=== PATIENT | male | born 1950 | race Caucasian/White ===

== ENCOUNTER 2018-08-30 02:59 | Emergency (ER) | payer MEDICARE, OTHER ==
--- NOTE | 2018-08-30 04:13 | EDM.PDOC ---
ED HPI GENERAL MEDICAL PROBLEM - General Chief Complaint: Cardiovascular Problem Stated Complaint: HEART Time Seen by Provider: 08/30/18 03:20 Source of Information: Reports: Patient, Family History Limitations: Reports: No Limitations - History of Present Illness INITIAL COMMENTS - FREE TEXT/NARRATIVE: 68-year-old male, has been having paroxysmal atrial fibrillation for the past 5 months. He is on a chemotherapy agent for CLL, which has a side effect of increased arrhythmias. He had atrial fibrillation for 3 straight days from August 24 to August 26, followed up with his oncologist and his medication was stopped. He was in a normal sinus rhythm when he saw his oncologist, and was told that if he gets another episode of atrial fibrillation or palpitations he needs to come directly in to get it documented. He was in normal rhythm until 1 AM, 2 hours before coming into the emergency room when he awoke with palpitations. He has no shortness of breath, chest pain, fever or chills. No peripheral edema. Onset: Sudden Duration: Hour(s): Associated Symptoms: Reports: Shortness of Breath (Short of breath with activity ) - Related Data Allergies Allergy/AdvReac Type Severity Reaction Status Date / Time No Known Allergies Allergy Verified 08/30/18 03:06 Home Meds: Home Meds NK [No Known Home Meds] 08/30/18 [History] Past Medical History HEENT History: Reports: Cataract, Impaired Vision Other Cardiovascular History: CLL Other Oncologic History: LLC - Past Surgical History Musculoskeletal Surgical History: Reports: Arthroscopic Procedure, Knee Replacement Other Musculoskeletal Surgeries/Procedures:: arthroscopic ankle surgery Social & Family History - Tobacco Use Smoking Status *Q: Never Smoker - Caffeine Use Caffeine Use: Reports: Soda Caffeine Use Comment: occasional diet soda - Recreational Drug Use Recreational Drug Use: No ED ROS GENERAL - Review of Systems Review Of Systems: See Below Constitutional: Denies: Fever, Chills Respiratory: Reports: Shortness of Breath (Only with activity) Cardiovascular: Reports: Palpitations GI/Abdominal: Reports: No Symptoms Musculoskeletal: Reports: No Symptoms Skin: Reports: No Symptoms Neurological: Reports: No Symptoms Hematologic/Lymphatic: Reports: Other (Apparently he is becoming somewhat anemic attributed to his CLL) ED EXAM, GENERAL - Physical Exam Exam: See Below Exam Limited By: No Limitations General Appearance: Alert, No Apparent Distress Eye Exam: Bilateral Eye: Normal Inspection Head: Atraumatic Respiratory/Chest: No Respiratory Distress, Lungs Clear Cardiovascular: Irregularly Irregular. No: Tachycardia Extremities: No: Pedal Edema Neurological: Alert, Oriented Psychiatric: Normal Affect, Normal Mood Skin Exam: Warm, Dry EKG INTERPRETATION EKG Date: 08/30/18 Rhythm: A-Fib Rate (Beats/Min): 78 QRS: Normal Comparison: NA - No Prior EKG Course - Vital Signs Last Recorded V/S: Last Vital Signs Temp 99.7 F 08/30/18 03:04 Pulse 67 08/30/18 04:03 Resp 16 08/30/18 03:04 BP 121/75 08/30/18 04:03 Pulse Ox 97 08/30/18 03:04 - Orders/Labs/Meds Orders: Active Orders 24 hr Category Date Time Status EKG Documentation Completion [RC] ASDIRECTED Care 08/30/18 04:11 Active EKG 12 Lead [EK] Routine Ther 08/30/18 04:11 Ordered Labs: Laboratory Tests 08/30/18 08/30/18 Range/Units 04:36 04:36 WBC 57.2 H* (4.5-11.0) K/uL RBC 3.61 L (4.30-5.90) M/uL Hgb 10.4 L (12.0-15.0) g/dL Hct 33.9 L (40.0-54.0) % MCV 94 (80-98) fL MCH 29 (27-31) pg MCHC 31 L (32-36) % Plt Count 160 (150-400) K/uL Neut % (Auto) 4 L (36-66) % Lymph % (Auto) 95 H (24-44) % [place] % (Auto) 1 L (2-6) % Eos % (Auto) 0 L (2-4) % Baso % (Auto) 0 (0-1) % Sodium 144 (140-148) mmol/L Potassium 3.9 (3.6-5.2) mmol/L Chloride 109 H (100-108) mmol/L Carbon Dioxide 26 (21-32) mmol/L Anion Gap 12.9 (5.0-14.0) mmol/L BUN 16 (7-18) mg/dL Creatinine 0.9 (0.8-1.3) mg/dL Est Cr Clr Drug Dosing 93.87 mL/min Estimated GFR (MDRD) > 60 (>60) Glucose 92 (74-106) mg/dL Calcium 8.9 (8.5-10.1) mg/dL Total Bilirubin 0.4 (0.2-1.0) mg/dL AST 20 (15-37) U/L ALT 27 (12-78) U/L Alkaline Phosphatase 37 L (46-116) U/L Troponin I < 0.017 (0.000-0.056) ng/mL Total Protein 6.2 L (6.4-8.2) g/dL Albumin 3.7 (3.4-5.0) g/dL Globulin 2.5 (2.3-3.5) g/dL Albumin/Globulin Ratio 1.5 (1.2-2.2) TSH, Ultra Sensitive 8.040 H (0.358-3.740) uIU/mL - Re-Assessments/Exams Free Text/Narrative Re-Assessment/Exam: 08/30/18 04:19 EKG confirmed atrial fibrillation. Sat and discussed options with the patient for 30 minutes and he continued to be in a well-controlled atrial fibrillation pattern. A CBC, CMP, TSH and troponin were obtained, and the patient will return at 8-9 AM in a fasting state to discuss an elective cardioversion in medication options. Departure - Departure Time of Disposition: 04:13 Disposition: Home, Self-Care 01 Clinical Impression: Atrial fibrillation Qualifiers: Atrial fibrillation type: paroxysmal Qualified Code(s): I48.0 - Paroxysmal atrial fibrillation Instructions: Atrial Fibrillation, [id number] Referrals: PCP,None [Primary Care Provider] - Forms: ED Department Discharge Care Plan Goals: Return tomorrow morning around 8-9 AM if still experiencing an irregular heartbeat. - My Orders Last 24 Hours: My Active Orders 08/30/18 04:11 EKG Documentation Completion [RC] ASDIRECTED EKG 12 Lead [EK] Routine - Assessment/Plan Last 24 Hours: My Active Orders 08/30/18 04:11 EKG Documentation Completion [RC] ASDIRECTED EKG 12 Lead [EK] Routine
== END 2018-08-30 04:36 | disposition home or self-care (01) ==
LOC: JP.ED 02:59
DX: I48.0 Paroxysmal atrial fibrillation (principal)
CPT/HCPCS: 36415; 80053; 84443; 84484; 85025; 92950; 93005; 93010; 99283; 99284-25; J2704; J3490; J7030

== ENCOUNTER 2018-08-30 11:02 | Emergency (ER) | payer MEDICARE, OTHER ==
[2018-08-30] MEDS ORDERED: Diltiazem 25 MG/5 ML SDV IVPUSH ONE (11:51)
--- NOTE | 2018-08-30 11:53 | EDM.PDOC ---
ED HPI GENERAL MEDICAL PROBLEM - General Chief Complaint: Cardiovascular Problem Stated Complaint: AFIB Time Seen by Provider: 08/30/18 11:17 Source of Information: Reports: Patient, Family, Old Records, RN Notes Reviewed History Limitations: Reports: No Limitations - History of Present Illness INITIAL COMMENTS - FREE TEXT/NARRATIVE: 68-year-old gentleman presents emergency department today complaint of palpitations, he was in the emergency department earlier today evaluation shows atrial fibrillation he does have a known history of paroxysmal atrial fibrillation for the last 10 years he is specific that this happened to him early this morning his symptoms are he goes up the stairs he gets short of breath and has to rest lab work was unrevealing except for mildly elevated TSH EKG is consistent with atrial fibrillation - Related Data Allergies Allergy/AdvReac Type Severity Reaction Status Date / Time No Known Allergies Allergy Verified 08/30/18 03:06 Home Meds: Home Meds NK [No Known Home Meds] 08/30/18 [History] Past Medical History HEENT History: Reports: Cataract, Impaired Vision Cardiovascular History: Reports: Afib Other Cardiovascular History: CLL Other Oncologic History: LLC - Past Surgical History Musculoskeletal Surgical History: Reports: Arthroscopic Procedure, Knee Replacement Other Musculoskeletal Surgeries/Procedures:: arthroscopic ankle surgery Social & Family History - Tobacco Use Smoking Status *Q: Never Smoker - Caffeine Use Caffeine Use: Reports: Energy Drinks, Soda Caffeine Use Comment: occasional diet soda - Recreational Drug Use Recreational Drug Use: No ED ROS GENERAL - Review of Systems Review Of Systems: See Below Constitutional: Reports: No Symptoms HEENT: Reports: No Symptoms Respiratory: Reports: No Symptoms Cardiovascular: Reports: Dyspnea on Exertion, Palpitations. Denies: Chest Pain GI/Abdominal: Reports: No Symptoms ED EXAM, GENERAL - Physical Exam Exam: See Below Exam Limited By: No Limitations General Appearance: Alert, WD/WN, No Apparent Distress Respiratory/Chest: No Respiratory Distress, Lungs Clear, Normal Breath Sounds, No Accessory Muscle Use, Chest Non-Tender Cardiovascular: Regular Rate, Rhythm, No Murmur ED CARDIOLOGY PROCEDURES - Additional/Other Procedure(s) Other (Free Text) Procedure(s): Preprocedure diagnosis: Paroxysmal atrial fibrillation Postprocedure diagnosis: Sinus rhythm Indication for procedure: Dyspnea and palpitations Performing physician: OfficerMD Procedure: Patient is located emergency department. Review risks and benefits of electrical cardioversion including but not limited to: Superficial skin eagle , effective treatment, unknown arrhythmias, reaction to anesthesia medications or asystole. The risks and benefits to this procedure have been discussed. Patient wishes to proceed with electrical cardioversion. The patient was connected to cardioversion pads with EKG monitoring, oxygen via nasal cannula with equipment of intubation and suction in the room. Paperwork was completed prior to the procedure with timeout performed by nursing staff. After adequate anesthesia was achieved the machine was charged to 200 joules and a synchronized electrical shock was applied. Patient was successfully converted to normal sinus rhythm based on telemetry monitoring. Patient will remain in the emergency department for post anesthesia care until awake and alert. Plan is to discharge home. Anticoagulation of aspirin, his chads score is 1 secondary to age Complications: None apparent Postprocedural EKG: Normal sinus rhythm Course - Vital Signs Last Recorded V/S: Last Vital Signs Temp 97.6 F 08/30/18 11:23 Pulse 49 L 08/30/18 12:13 Resp 8 L 08/30/18 12:13 BP 113/73 08/30/18 12:13 Pulse Ox 98 08/30/18 12:13 - Orders/Labs/Meds Orders: Active Orders 24 hr Category Date Time Status Sodium Chloride 0.9% [Normal Saline] 1,000 ml Med 08/30/18 13:00 Active IV ASDIRECTED Medication Orders Sodium Chloride (Normal Saline) 1,000 mls @ 100 mls/hr IV ASDIRECTED SWETHA Last Admin: 08/30/18 13:05 Dose: 100 mls/hr Meds: Medications Generic Name Dose Route Start Last Admin Trade Name Freq PRN Reason Stop Dose Admin Sodium Chloride 1,000 mls @ 100 mls/hr 08/30/18 13:00 08/30/18 13:05 Normal Saline IV 100 mls/hr ASDIRECTED SWETHA Administration Discontinued Medications Generic Name Dose Route Start Last Admin Trade Name Freq PRN Reason Stop Dose Admin Diltiazem HCl 25 mg 08/30/18 11:51 08/30/18 11:57 Diltiazem IVPUSH 08/30/18 11:52 25 mg ONETIME ONE Administration Propofol Confirm 08/30/18 13:12 Diprivan 20 Ml Administered 08/30/18 13:13 Dose 200 mg .ROUTE .STK-MED ONE Departure - Departure Time of Disposition: 13:58 Disposition: Home, Self-Care 01 Condition: Fair Clinical Impression: Encounter for cardioversion procedure Referrals: PCP,None [Primary Care Provider] - Forms: ED Department Discharge Additional Instructions: Recommend start metoprolol 25 mg once a day follow-up with primary care for further evaluation upon returning home - My Orders Last 24 Hours: My Active Orders 08/30/18 13:00 Sodium Chloride 0.9% [Normal Saline] 1,000 ml IV ASDIRECTED - Assessment/Plan Last 24 Hours: My Active Orders 08/30/18 13:00 Sodium Chloride 0.9% [Normal Saline] 1,000 ml IV ASDIRECTED Plan: Assessment Acuity = acute Site and laterality = atrial fibrillation paroxysmal status post cardioversion sinus rhythm Etiology = unknown etiology Manifestations = palpitations and dyspnea now resolved Location of injury = Home Lab values = none Plan Good response to cardioversion minimal response to Cardizem which was tried prior plans discharge home 25 mg metoprolol follow-up with primary care upon returning home This note was dictated using [employer] voice recognition software please call with any questions on syntax or grammar.
[2018-08-30] MEDS ORDERED: Sodium Chloride 0.9% 1,000 ML IV SCH (13:00)
[2018-08-30] MEDS ORDERED: Propofol 200 MG/20 ML SDV ONE (13:12)
== END 2018-08-30 14:30 | disposition home or self-care (01) ==
LOC: JP.ED 11:02
DX: I48.0 Paroxysmal atrial fibrillation (principal)
CPT/HCPCS: 92960; 96361; 96374; 99283-25; J2704; J3490; J7030

== ENCOUNTER 2020-09-22 19:41 | Emergency (ER) | payer MEDICARE, OTHER ==
--- NOTE | 2020-09-22 21:00 | EDM.PDOC ---
ED HPI GENERAL MEDICAL PROBLEM - General Chief Complaint: Fever Stated Complaint: FEVER, FULL BODY ACHE Time Seen by Provider: 09/22/20 20:44 Source of Information: Reports: Patient, RN Notes Reviewed History Limitations: Reports: No Limitations - History of Present Illness INITIAL COMMENTS - FREE TEXT/NARRATIVE: 70-year-old gentleman presents emergency department day with history of 2 days of fever and body aches. We will cycle he has generalized body aches but it also seems to go to his joints as well. He has been vaccinated for Covid he also had Covid back in February 2020. Recently turned from [place] in the spring but [facility] - Related Data Allergies Allergy/AdvReac Type Severity Reaction Status Date / Time No Known Allergies Allergy Verified 08/30/18 03:06 Home Meds: Home Meds Apixaban [Eliquis] 5 mg PO BID 09/22/20 [History] Flecainide [Tambocor] 100 mg PO Q12H 09/22/20 [History] Ibrutinib [Imbruvica] 140 mg PO DAILY 09/22/20 [History] Levothyroxine [Synthroid] 50 mcg PO ACBREAKFAST 09/22/20 [History] Metoprolol Succinate 12.52 mg PO DAILY 09/22/20 [History] Past Medical History HEENT History: Reports: Cataract, Impaired Vision Cardiovascular History: Reports: Afib, Other (See Below) Other Cardiovascular History: CLL Genitourinary History: Reports: Renal Calculus Musculoskeletal History: Reports: Fracture Endocrine/Metabolic History: Reports: Hypothyroidism Hematologic History: Reports: Anticoagulation Therapy Immunologic History: Reports: Immunosuppression Other Oncologic History: CLL - Infectious Disease History Infectious Disease History: Reports: Chicken Pox, Measles, Mononucleosis, Mumps, Novel Coronavirus, RSV - Past Surgical History HEENT Surgical History: Reports: Cataract Surgery, Eye Surgery Musculoskeletal Surgical History: Reports: Arthroscopic Procedure, Knee Replacement Other Musculoskeletal Surgeries/Procedures:: arthroscopic ankle surgery Social & Family History - Tobacco Use Tobacco Use Status *Q: Never Tobacco User - Caffeine Use Caffeine Use: Reports: Energy Drinks, Soda Caffeine Use Comment: occasional diet soda - Recreational Drug Use Recreational Drug Use: No ED ROS GENERAL - Review of Systems Review Of Systems: See Below Constitutional: Reports: Fever, Fatigue HEENT: Reports: No Symptoms Respiratory: Reports: No Symptoms Cardiovascular: Reports: No Symptoms GI/Abdominal: Reports: No Symptoms Musculoskeletal: Reports: Muscle Pain, Other (Joint pain) ED EXAM, GENERAL - Physical Exam Exam: See Below Exam Limited By: No Limitations General Appearance: Alert, WD/WN, No Apparent Distress Respiratory/Chest: No Respiratory Distress, Lungs Clear, Normal Breath Sounds, No Accessory Muscle Use, Chest Non-Tender Cardiovascular: No Murmur, Irregularly Irregular Course - Vital Signs Last Recorded V/S: Last Vital Signs Temp 98.3 F 09/22/20 20:33 Pulse 72 09/22/20 20:33 Resp 16 09/22/20 20:33 BP 147/77 H 09/22/20 20:33 Pulse Ox 99 09/22/20 20:33 - Orders/Labs/Meds Labs: Laboratory Tests 09/22/20 09/22/20 09/22/20 Range/Units 21:08 21:08 21:08 WBC 8.4 (4.5-11.0) K/uL RBC 5.01 (4.30-5.90) M/uL Hgb 14.0 D (12.0-15.0) g/dL Hct 42.7 (40.0-54.0) % MCV 85 (80-98) fL MCH 28 (27-31) pg MCHC 33 (32-36) % Plt Count 205 (150-400) K/uL Neut % (Auto) 39.9 (36-66) % Lymph % (Auto) 47.7 H (24-44) % [place] % (Auto) 11.8 H (2-6) % Eos % (Auto) 0.1 L (2-4) % Baso % (Auto) 0.5 (0-1) % Sodium 140 (140-148) mmol/L Potassium 4.2 (3.6-5.2) mmol/L Chloride 103 (100-108) mmol/L Carbon Dioxide 26 (21-32) mmol/L Anion Gap 10.6 (5.0-14.0) mmol/L BUN 11 (7-18) mg/dL Creatinine 1.1 (0.8-1.3) mg/dL Est Cr Clr Drug Dosing 74.73 mL/min Estimated GFR (MDRD) > 60 (>60) Glucose 82 (74-106) mg/dL Lactic Acid 1.2 (0.4-2.0) mmol/L Calcium 8.9 (8.5-10.1) mg/dL Total Bilirubin 0.6 (0.2-1.0) mg/dL AST 17 (15-37) U/L ALT 21 (12-78) U/L Alkaline Phosphatase 54 (46-116) U/L Total Protein 7.3 (6.4-8.2) g/dL Albumin 4.0 (3.4-5.0) g/dL Globulin 3.3 (2.3-3.5) g/dL Albumin/Globulin Ratio 1.2 (1.2-2.2) SARS CoV-2 RNA Rapid GEOVANNI 09/22/20 Range/Units 21:17 WBC (4.5-11.0) K/uL RBC (4.30-5.90) M/uL Hgb (12.0-15.0) g/dL Hct (40.0-54.0) % MCV (80-98) fL MCH (27-31) pg MCHC (32-36) % Plt Count (150-400) K/uL Neut % (Auto) (36-66) % Lymph % (Auto) (24-44) % [place] % (Auto) (2-6) % Eos % (Auto) (2-4) % Baso % (Auto) (0-1) % Sodium (140-148) mmol/L Potassium (3.6-5.2) mmol/L Chloride (100-108) mmol/L Carbon Dioxide (21-32) mmol/L Anion Gap (5.0-14.0) mmol/L BUN (7-18) mg/dL Creatinine (0.8-1.3) mg/dL Est Cr Clr Drug Dosing mL/min Estimated GFR (MDRD) (>60) Glucose (74-106) mg/dL Lactic Acid (0.4-2.0) mmol/L Calcium (8.5-10.1) mg/dL Total Bilirubin (0.2-1.0) mg/dL AST (15-37) U/L ALT (12-78) U/L Alkaline Phosphatase (46-116) U/L Total Protein (6.4-8.2) g/dL Albumin (3.4-5.0) g/dL Globulin (2.3-3.5) g/dL Albumin/Globulin Ratio (1.2-2.2) SARS CoV-2 RNA Rapid GEOVANNI Negative Departure - Departure Time of Disposition: 21:55 Disposition: Home, Self-Care 01 Condition: Fair Clinical Impression: Tick bite Qualifiers: Encounter type: initial encounter Site of tick bite: unspecified site Qualified Code(s): W57.XXXA - Bitten or stung by nonvenomous insect and other nonvenomous arthropods, initial encounter - Discharge Information Instructions: Tick Bite Information, Adult, [id number] Referrals: PCP,None [Primary Care Provider] - Forms: ED Department Discharge Additional Instructions: Take full course of antibiotics, please followup with your primary care provider in 3-5 days if not better, please call return to the emergency department with worsening of symptoms. Sepsis Event Note (ED) - Evaluation Sepsis Screening Result: No Definite Risk - Focused Exam Vital Signs: Vital Signs Temp Pulse Resp BP Pulse Ox 09/22/20 20:33 98.3 F 72 16 147/77 H 99 09/22/20 20:23 98.3 F 72 16 147/77 H 99 - Assessment/Plan Plan: Assessment Acuity = acute Site and laterality = possible tickborne illness Etiology = unknown Manifestations = body aches, fever Location of injury = Home Lab values = CBC, CMP unremarkable Covid was negative Plan Elected to treat empirically doxycycline 100 mg p.o. twice daily x14 days she is can follow-up with primary care in 3 to 5 days if no improvement This note was dictated using [employer] voice recognition software please call with any questions on syntax or grammar.
== END 2020-09-22 22:08 | disposition home or self-care (01) ==
LOC: JP.ED 19:41
DX: T14.8XXA Other injury of unspecified body region, initial encounter (principal); I48.91 Unspecified atrial fibrillation; E03.9 Hypothyroidism, unspecified; Z79.01 Long term (current) use of anticoagulants; Z79.899 Other long term (current) drug therapy; Z20.822 Contact with and (suspected) exposure to COVID-19; W57.XXXA Bitten or stung by nonvenomous insect and other nonvenomous arthropods, initial encounter
CPT/HCPCS: 36415; 80053; 83605; 85025; 99283; U0002

== ENCOUNTER 2021-07-20 20:08 | Emergency (ER) | payer MEDICARE, OTHER ==
[2021-07-20] MEDS: Acetaminophen/oxyCODONE 325-5 MG Tab PO PRN (21:11)
[2021-07-20] MEDS: Ondansetron 4 MG/2 ML SDV IVPUSH ONE (21:55)
[2021-07-20] MEDS: Morphine 2 MG/ML SYRINGE IVPUSH ONE (21:55)
[2021-07-21] MEDS ORDERED: Morphine 2 MG/ML SYRINGE IVPUSH ONE (00:01)
[2021-07-21] MEDS: Morphine 2 MG/ML SYRINGE IVPUSH ONE (00:14)
== END 2021-07-21 01:41 | disposition home or self-care (01) ==
LOC: JP.ED 20:08
DX: S22.32XA Fracture of one rib, left side, initial encounter for closed fracture (principal); S22.050A Wedge compression fracture of T5-T6 vertebra, initial encounter for closed fracture; S30.0XXA Contusion of lower back and pelvis, initial encounter; M51.46 Schmorl's nodes, lumbar region; N20.0 Calculus of kidney; R07.81 Pleurodynia; I48.91 Unspecified atrial fibrillation; E03.9 Hypothyroidism, unspecified; Z79.01 Long term (current) use of anticoagulants; Z79.899 Other long term (current) drug therapy; W01.0XXA Fall on same level from slipping, tripping and stumbling without subsequent striking against object, initial encounter; Y93.02 Activity, running
CPT/HCPCS: 36415; 71250; 72128; 72131; 85018; 96374; 96375; 96376; 99284; A9270; J2270; J2405

== ENCOUNTER 2021-08-06 11:26 | Day surgery (SDC) | payer MEDICARE, OTHER ==
[~2021-08-06 11:26] MED LIST: Bupivacaine 0.5% 50 ML MDV ONE; Lidocaine 1% with EPINEPHrine 1:100,000 50 ML MDV ONE; Meropenem 500 MG SDV ONE
[2021-08-06] MEDS ORDERED: ceFAZolin 2 GM in Premix Bag 1 BAG IV ONE (11:30)
[2021-08-06] MEDS ORDERED: Acetaminophen 500 MG Tab PO ONE ×2 (11:35→16:35)
[2021-08-06] MEDS ORDERED: ceFAZolin 2 GM in Sodium Chloride 0.9% 100 ML IV ONE (11:35)
[2021-08-06] MEDS ORDERED: Dextrose 5%-Lactated Ringers 1,000 ML IV SCH (11:35)
[2021-08-06 12:16] LABS: ESTIMATED GFR 66 mL/min (>60)
[2021-08-06] MEDS ORDERED: fentaNYL 250 MCG/5 ML SDV ONE (12:18)
[2021-08-06] MEDS ORDERED: Dexamethasone 4 MG/ML SDV ONE (12:19)
[2021-08-06] MEDS ORDERED: Neostigmine Methylsulfate 1 MG/ML 5 ML Syringe ONE (12:19)
[2021-08-06] MEDS ORDERED: Succinylcholine 200 MG/10 ML MDV ONE (12:19)
[2021-08-06] MEDS ORDERED: Rocuronium 50 MG/5 ML Vial ONE (12:19)
[2021-08-06] MEDS ORDERED: Propofol 200 MG/20 ML SDV ONE (12:19)
[2021-08-06] MEDS ORDERED: Ondansetron 4 MG/2 ML SDV ONE (12:19)
[2021-08-06] MEDS ORDERED: Glycopyrrolate 0.2 MG/ML 5 ML MDV ONE (12:19)
[2021-08-06] MEDS ORDERED: fentaNYL 100 MCG/2 ML SDV ONE (14:43)
[2021-08-06] MEDS ORDERED: Mupirocin Oint 22 GM Tube ONE (14:53)
[2021-08-06] MEDS ORDERED: Linezolid 600 MG/300 ML Premix Bag IRR ONE (14:59)
[2021-08-06] MEDS ORDERED: oxyCODONE 5 MG Tab PO PRN (16:45)
== END 2021-08-06 17:00 | disposition home or self-care (01) ==
LOC: JP.SDS 11:26
PROVIDERS: ATTEND Surgery
DX: S30.0XXA Contusion of lower back and pelvis, initial encounter (principal); S22.32XA Fracture of one rib, left side, initial encounter for closed fracture; S22.050A Wedge compression fracture of T5-T6 vertebra, initial encounter for closed fracture; I48.91 Unspecified atrial fibrillation; E03.9 Hypothyroidism, unspecified; N20.0 Calculus of kidney; M51.45 Schmorl's nodes, thoracolumbar region; Z79.01 Long term (current) use of anticoagulants; Z01.812 Encounter for preprocedural laboratory examination; Z79.899 Other long term (current) drug therapy; Z98.890 Other specified postprocedural states; Z20.822 Contact with and (suspected) exposure to COVID-19
CPT/HCPCS: 36415; 80048; 83735; 84100; 85027; A9270-GY; J0330; J0690; J1100; J2020; J2185; J2405; J2704; J2710; J3010; J3490; J7121; U0002

== ENCOUNTER 2022-10-30 14:55 | Emergency (ER) | payer MEDICARE, BC ==
[2022-10-30 16:57] LABS: BASOPHILS PERCENT AUTO 0.2 % (0.1-1.3); EOSINOPHILS PERCENT AUTO 0.1 % (0.0-5.4); HEMATOCRIT 29.5 % (38.4-49.7); HEMOGLOBIN 9.5 g/dL (12.9-16.9); IMMATURE GRAN ABSOLUTE AUTO 0.16 K/uL (0.00-0.23); IMMATURE GRAN PERCENT AUTO 1.3 % (0.0-0.7); LYMPHOCYTES ABSOLUTE AUTO 4.25 K/uL (0.8-3.3); LYMPHOCYTES PERCENT AUTO 34.1 % (11.4-47.7); MEAN CORPUSCULAR HEMOGLOBIN 27.3 pg (31.6-35.5); MEAN CORPUSCULAR HGB CONC 32.2 g/dL (31.6-35.5); MEAN CORPUSCULAR VOLUME 84.8 fL (81.4-99.0); MONOCYTES ABSOLUTE AUTO 1.36 K/uL (0.20-0.90); MONOCYTES PERCENT AUTO 10.9 % (3.3-12.6); NEUTROPHILS ABSOLUTE AUTO 6.68 K/uL (1.0-7.6); NEUTROPHILS PERCENT AUTO 53.4 % (40.0-78.1); PLATELET COUNT,PLT 154 K/uL (130-375); RED BLOOD CELL COUNT 3.48 M/uL (4.14-5.76); WHITE BLOOD CELL COUNT,WBC 12.5 K/uL (3.2-11.0)
[2022-10-30 17:09] LABS: BASOPHILS ABSOLUTE AUTO 0.02 K/uL (0.00-0.10); EOSINOPHILS ABSOLUTE AUTO 0.01 K/uL (0.00-0.40)
[2022-10-30 17:14] LABS: CALCIUM 8.8 mg/dL (8.5-10.1); CREATININE 1.2 mg/dL (0.8-1.3); EST CRCL DRUG DOSING (CG) 66.6 mL/min; MAGNESIUM 2.1 mg/dL (1.8-2.4); POTASSIUM,K 4.3 mmol/L (3.6-5.2)
[2022-10-30 17:15] LABS: ANION GAP 11.3 mmol/L (5.0-14.0)
[2022-10-30] MEDS ORDERED: Sodium Chloride 0.9% 1,000 ML IV ONE (17:25)
== END 2022-10-30 19:12 | disposition home or self-care (01) ==
LOC: JP.ED 14:55
DX: R55 Syncope and collapse (principal); I48.91 Unspecified atrial fibrillation; E03.9 Hypothyroidism, unspecified; Z79.01 Long term (current) use of anticoagulants
CPT/HCPCS: 36415; 80048; 83735; 85025; 93005; 96360; 99284; J7030